=== PATIENT | male | born 1955 | race African-American/Black ===

== ENCOUNTER 2018-06-02 22:50 | Emergency (ER) | payer OTHER ==
[~2018-06-02] VITALS: Ht 175.3 cm; Wt 73.0 kg
[2018-06-03 02:04] VITALS: BP 122/80
== END 2018-06-03 02:17 | disposition home or self-care (01) ==
LOC: ED 22:50
DX: S01.112A Laceration without foreign body of left eyelid and periocular area, initial encounter (principal); W19.XXXA Unspecified fall, initial encounter; Y92.009 Unspecified place in unspecified non-institutional (private) residence as the place of occurrence of the external cause

== ENCOUNTER 2018-07-03 10:28 | Emergency (ER) | payer OTHER ==
[~2018-07-03] VITALS: Ht 175.3 cm; Wt 77.3 kg
[2018-07-03 10:55] VITALS: BP 127/80
== END 2018-07-03 10:55 | disposition home or self-care (01) ==
LOC: ED 10:28
DX: S01.102D Unspecified open wound of left eyelid and periocular area, subsequent encounter (principal); X58.XXXD Exposure to other specified factors, subsequent encounter

== ENCOUNTER 2020-03-19 | Emergency (ER) | payer MEDICAID, OTHER ==
[~2020-03-19] MED LIST: MOBIC15 MG PO
== END 2020-03-19 16:55 | disposition home or self-care (01) | DRG 552 ==
DX: S16.1XXA Strain of muscle, fascia and tendon at neck level, initial encounter (principal); S39.012A Strain of muscle, fascia and tendon of lower back, initial encounter; X50.0XXA Overexertion from strenuous movement or load, initial encounter; Y93.89 Activity, other specified

== ENCOUNTER 2021-07-03 18:26 | Emergency (ER) | payer MEDICARE, MEDICAID ==
[~2021-07-03] VITALS: Ht 175.3 cm; Wt 68.0 kg
[2021-07-03] MEDS ORDERED: ZOFRAN4 MG/TAB PO (20:51)
[2021-07-03 21:55] VITALS: BP 128/70
== END 2021-07-03 21:55 | disposition home or self-care (01) ==
LOC: ED 18:26
DX: U07.1 COVID-19 (principal)